=== PATIENT | male | born 1995 | race American Indian/Alaskan Native ===

== ENCOUNTER 2016-11-07 21:10 | Emergency (ER) | payer OTHER ==
--- NOTE | 2016-11-08 02:47 | Emergency Department Report ---
ED ENT HPI - General Chief complaint: Sore Throat Stated complaint: SORE THROAT Time Seen by Provider: 11/08/16 02:06 Source: patient Mode of arrival: Ambulatory Limitations: No Limitations - History of Present Illness Initial comments: This is a 21-year-old male nontoxic, well nourished in appearance, no acute signs of distress presents to the ED complaining of sore throat 5 days. Patient describes sore throat and swallowing razor blade. She denies any fever , chills, nausea, vomiting, drooling, difficulty breathing, stiff neck, headache , numbness or tingling. Patient denies any trauma to the region. Denies any allergies. past medical history includes asthma and diabetes.. MD complaint: sore throat -: Gradual, days(s) (5) Location: throat Severity: moderate Severity scale (0 -10): 8 Quality: other (sensation of swallowing razor blades) Consistency: constant Improves with: none Worsens with: swallowing Associated Symptoms: pain with swallowing, sore throat. denies: fever, cough, gum swelling, toothache, tinnitus, hearing loss, discharge from ear, rhinorrhea - Related Data Previous Rx's Medication Instructions Recorded Last Taken Type ALBUTEROL Inhaler [ProAir HFA 2 puff IH QID PRN #1 inhalation 08/10/14 Unknown Rx Inhaler] Fluticasone [Flonase] 2 spray NS QDAY #1 bottle 08/10/14 Unknown Rx Loratadine [Claritin] 10 mg PO DAILY #30 tablet 08/10/14 Unknown Rx predniSONE [Deltasone] 20 mg PO QDAY #5 tab 08/10/14 Unknown Rx Amoxicillin 500 mg PO BID #20 capsule 11/08/16 Unknown Rx Nystas/Diphen/Xyl Visc/Mylanta 480 ml MM DAILY #1 udc 11/08/16 Unknown Rx [Magic Mouthwash] Allergies Allergy/AdvReac Type Severity Reaction Status Date / Time No Known Allergies Allergy Unverified 08/09/14 22:10 ED Dental HPI - General Chief complaint: Sore Throat Stated complaint: SORE THROAT Time Seen by Provider: 11/08/16 02:06 Source: patient Mode of arrival: Ambulatory Limitations: No Limitations - Related Data Previous Rx's Medication Instructions Recorded Last Taken Type ALBUTEROL Inhaler [ProAir HFA 2 puff IH QID PRN #1 inhalation 08/10/14 Unknown Rx Inhaler] Fluticasone [Flonase] 2 spray NS QDAY #1 bottle 08/10/14 Unknown Rx Loratadine [Claritin] 10 mg PO DAILY #30 tablet 08/10/14 Unknown Rx predniSONE [Deltasone] 20 mg PO QDAY #5 tab 08/10/14 Unknown Rx Amoxicillin 500 mg PO BID #20 capsule 11/08/16 Unknown Rx Nystas/Diphen/Xyl Visc/Mylanta 480 ml MM DAILY #1 udc 11/08/16 Unknown Rx [Magic Mouthwash] Allergies Allergy/AdvReac Type Severity Reaction Status Date / Time No Known Allergies Allergy Unverified 08/09/14 22:10 ED Review of Systems ROS: Stated complaint: SORE THROAT Other details as noted in HPI Constitutional: denies: chills, fever Eyes: denies: eye pain, eye discharge, vision change ENT: throat pain. denies: ear pain Respiratory: denies: cough, shortness of breath, wheezing Cardiovascular: denies: chest pain, palpitations Endocrine: no symptoms reported Gastrointestinal: denies: abdominal pain, nausea, diarrhea Genitourinary: denies: urgency, dysuria Musculoskeletal: denies: back pain, joint swelling, arthralgia Skin: denies: rash, lesions Neurological: denies: headache, weakness, paresthesias Psychiatric: denies: anxiety, depression Hematological/Lymphatic: denies: easy bleeding, easy bruising ED Past Medical Hx - Past Medical History Hx Diabetes: Yes Hx Asthma: Yes - Surgical History Past Surgical History?: No - Social History Smoking Status: Never Smoker Substance Use Type: None - Medications Home Medications: Home Medications Medication Instructions Recorded Confirmed Last Taken Type ALBUTEROL Inhaler [ProAir HFA 2 puff IH QID PRN #1 inhalation 08/10/14 Unknown Rx Inhaler] Fluticasone [Flonase] 2 spray NS QDAY #1 bottle 08/10/14 Unknown Rx Loratadine [Claritin] 10 mg PO DAILY #30 tablet 08/10/14 Unknown Rx predniSONE [Deltasone] 20 mg PO QDAY #5 tab 08/10/14 Unknown Rx Amoxicillin 500 mg PO BID #20 capsule 11/08/16 Unknown Rx Nystas/Diphen/Xyl Visc/Mylanta 480 ml MM DAILY #1 udc 11/08/16 Unknown Rx [Magic Mouthwash] ED Physical Exam - General Limitations: No Limitations General appearance: alert, in no apparent distress - Head Head exam: Present: atraumatic, normocephalic, normal inspection - Eye Eye exam: Present: normal appearance, PERRL, EOMI. Absent: scleral icterus, conjunctival injection, nystagmus, periorbital swelling, periorbital tenderness Pupils: Present: normal accommodation - ENT ENT exam: Present: mucous membranes moist, TM's normal bilaterally, normal external ear exam - Expanded ENT Exam Expanded Ear exam: Present: normal external inspection Mouth exam: Present: normal external inspection, tongue normal. Absent: drooling, trismus, muffled voice, tongue elevation, laceration Teeth exam: Present: normal inspection Throat exam: Positive: tonsillar erythema, tonsillomegaly (2+), tonsillar exudate, other (no abscesses or swelling noted. Uvula midline.). Negative: R peritonsillar mass, L peritonsillar mass - Neck Neck exam: Present: normal inspection, full ROM. Absent: tenderness, meningismus, lymphadenopathy, thyromegaly - Respiratory Respiratory exam: Present: normal lung sounds bilaterally. Absent: respiratory distress, wheezes, rales, rhonchi, stridor, chest wall tenderness, accessory muscle use, decreased breath sounds, prolonged expiratory - Cardiovascular Cardiovascular Exam: Present: regular rate, normal rhythm, normal heart sounds. Absent: systolic murmur, diastolic murmur, rubs, gallop - GI/Abdominal GI/Abdominal exam: Present: soft, normal bowel sounds - Rectal Rectal exam: Present: deferred - Extremities Exam Extremities exam: Present: normal inspection, full ROM, normal capillary refill. Absent: tenderness, pedal edema, joint swelling, calf tenderness - Back Exam Back exam: Present: normal inspection, full ROM. Absent: tenderness, CVA tenderness (R), CVA tenderness (L), muscle spasm, paraspinal tenderness, vertebral tenderness, rash noted - Neurological Exam Neurological exam: Present: alert, oriented X3, CN II-XII intact, normal gait, reflexes normal - Psychiatric Psychiatric exam: Present: normal affect, normal mood - Skin Skin exam: Present: warm, dry, intact, normal color. Absent: rash ED Course Vital Signs 11/07/16 11/07/16 21:25 21:30 Temperature 99.8 F H 99.8 F H Pulse Rate 105 H 102 H Respiratory 18 18 Rate Blood Pressure 122/76 Blood Pressure 122/76 [Left] O2 Sat by Pulse 98 97 Oximetry - Reevaluation(s) Reevaluation #1: 11/08/16 02:45 Patient is speaking full sentences with no signs of distress Critical care attestation.: If time is entered above; I have spent that time in minutes in the direct care of this critically ill patient, excluding procedure time. ED Disposition Clinical Impression: Tonsillitis with exudate Disposition: DC-01 TO HOME OR SELFCARE Is pt being admited?: No Does the pt Need Aspirin: No Condition: Stable Instructions: Tonsillitis (ED), Amoxicillin (By mouth) Additional Instructions: Follow-up with a primary care doctor in 3-5 days or if symptoms worsen and continue return to emergency room as soon as possible possible. Prescriptions: Amoxicillin 500 mg PO BID #20 capsule Nystas/Diphen/Xyl Visc/Mylanta [Magic Mouthwash] 480 ml MM DAILY #1 [facility] [place] Referrals: PRIMARY CAREMD [Primary Care Provider] - 3-5 Days MINDA ORELLANA MD [Staff Physician] - 3-5 Days [facility] [Outside] - 3-5 Days [facility] [Outside] - 3-5 Days Forms: Work/School Release Form(ED)
[2016-11-08] MEDS ORDERED: LIDOCAINE VISCOUS 2% PO ONE (02:50)
[2016-11-08 03:18] VITALS: BP 122/71
[2016-11-08] MEDS ORDERED: MOTRIN PO ONE (03:45)
== END 2016-11-08 03:56 | disposition home or self-care (01) ==
LOC: ED 21:10
DX: J03.90 Acute tonsillitis, unspecified (principal); E11.9 Type 2 diabetes mellitus without complications; J45.909 Unspecified asthma, uncomplicated
CPT/HCPCS: 87116; 87430; 99282

== ENCOUNTER 2017-02-15 14:55 | Emergency (ER) | payer OTHER ==
[2017-02-15 16:27] LABS: Basophils # (Auto) 0.1 K/mm3 (0.0-0.1); Basophils % (Auto) 0.7 % (0.0-1.8); Eosinophils # (Auto) 0.3 K/mm3 (0.0-0.4); Eosinophils % (Auto) 4.2 % (0.0-4.3); Hematocrit 43.9 % (35.5-45.6); Hemoglobin 14.1 gm/dl (11.8-15.2); Lymphocytes % (Auto) 28.6 % (13.4-35.0); Mean Corpuscular HGB Conc 32 % (32-34); Mean Corpuscular Hemoglobin 28 pg (28-32); Mean Corpuscular Volume 87 fl (84-94); Monocytes # (Auto) 0.8 K/mm3 (0.0-0.8); Monocytes % (Auto) 12.2 % (0.0-7.3); Platelet Count 350 K/mm3 (140-440); Red Blood Count 5.06 M/mm3 (3.65-5.03); Red Cell Distribution Width 14.5 % (13.2-15.2)
[2017-02-15 16:32] LABS: Bilirubin,Urine SM (Negative); Blood,Urine NEG (Negative); Color,Urine Amber (Yellow); Mucus,Urine 3+ /HPF; Nitrite,Urine NEG (Negative)
[2017-02-15 16:39] LABS: Ictotest,Urine Negative (Negative)
[2017-02-15 16:51] LABS: Alanine Aminotransferase 26 units/L (7-56); Albumin 4.1 g/dL (3.9-5); BUN/Creatinine Ratio 7; Blood Urea Nitrogen 5 mg/dL (9-20); Calcium 9.3 mg/dL (8.4-10.2); Hemolysis Index 8
[2017-02-15 21:55] VITALS: BP 110/77
--- NOTE | 2017-02-16 00:15 | Emergency Department Report ---
ED N/V/D HPI - General Chief complaint: Abdominal Pain Stated complaint: ABD PAIN, VOMITTING, DIAHRRHEA Time Seen by Provider: 02/15/17 23:31 Source: patient Mode of arrival: Ambulatory Limitations: No Limitations - History of Present Illness Initial comments: 21 year old male with a past medical history asthma and [id number] diabetes presents to the hospital complaints of intermittent abdominal pain, nausea, vomiting, and diarrhea since end of January. Symptoms worsened prior to presentation to the ED. Patient states his abdomen "seized up" he thought he could not move. At that time pain was severe. Patient has been in the ER over 8 hours the pain has gradually subsided spontaneously without treatment. He is currently pain-free. Patient states for the past month he's been vomiting on average every day and having approximately 4 loose stools per day. Patient denies hematemesis, melena, hematochezia, fever, recent travel, sick contacts, or recent antibiotic use. Patient has both a primary care doctor and a environmental resource specialist and plans to follow-up next week. He does not have a GI specialist. - Related Data Previous Rx's Medication Instructions Recorded Last Taken Type ALBUTEROL Inhaler [ProAir HFA 2 puff IH QID PRN #1 inhalation 08/10/14 Unknown Rx Inhaler] Fluticasone [Flonase] 2 spray NS QDAY #1 bottle 08/10/14 Unknown Rx Loratadine [Claritin] 10 mg PO DAILY #30 tablet 08/10/14 Unknown Rx predniSONE [Deltasone] 20 mg PO QDAY #5 tab 08/10/14 Unknown Rx Amoxicillin 500 mg PO BID #20 capsule 11/08/16 Unknown Rx Nystas/Diphen/Xyl Visc/Mylanta 480 ml MM DAILY #1 udc 11/08/16 Unknown Rx [Magic Mouthwash] Loperamide [Imodium] 2 mg PO Q2HR PRN #20 capsule 02/16/17 Unknown Rx Ondansetron [Zofran Odt] 4 mg PO Q8HR PRN #20 tab.rapdis 02/16/17 Unknown Rx traMADol [Ultram] 50 mg PO Q6HR PRN #20 tablet 02/16/17 Unknown Rx Allergies Allergy/AdvReac Type Severity Reaction Status Date / Time No Known Allergies Allergy Unverified 07/04/15 22:10 ED Review of Systems ROS: Stated complaint: ABD PAIN, VOMITTING, DIAHRRHEA Other details as noted in HPI Comment: All other systems reviewed and negative Other: Constitutional: No fevers chills Eyes: No eye pain visual changes ENT: No ear pain or throat pain Neck: Denies pain Respiratory: Denies cough wheezing shortness of breath Cardiovascular: Denies chest pain, palpitations, syncope GI:as per hpi : Denies dysuria Musculoskeletal: Denies back pain Skin: Denies rash, lesions, erythema Neurologic: Denies headache, numbness, weakness Psychiatric: Denies suicidal ideation, hallucinations ED Past Medical Hx - Past Medical History Hx Diabetes: Yes Hx Asthma: Yes - Social History Smoking Status: Never Smoker Substance Use Type: None - Medications Home Medications: Home Medications Medication Instructions Recorded Confirmed Last Taken Type ALBUTEROL Inhaler [ProAir HFA 2 puff IH QID PRN #1 inhalation 08/10/14 Unknown Rx Inhaler] Fluticasone [Flonase] 2 spray NS QDAY #1 bottle 08/10/14 Unknown Rx Loratadine [Claritin] 10 mg PO DAILY #30 tablet 08/10/14 Unknown Rx predniSONE [Deltasone] 20 mg PO QDAY #5 tab 08/10/14 Unknown Rx Amoxicillin 500 mg PO BID #20 capsule 11/08/16 Unknown Rx Nystas/Diphen/Xyl Visc/Mylanta 480 ml MM DAILY #1 udc 11/08/16 Unknown Rx [Magic Mouthwash] Loperamide [Imodium] 2 mg PO Q2HR PRN #20 capsule 02/16/17 Unknown Rx Ondansetron [Zofran Odt] 4 mg PO Q8HR PRN #20 tab.rapdis 02/16/17 Unknown Rx traMADol [Ultram] 50 mg PO Q6HR PRN #20 tablet 02/16/17 Unknown Rx ED Physical Exam - General Limitations: No Limitations - Other Other exam information: General: No limitations, patient is alert in no acute distress Head exam: Atraumatic, normocephalic Eyes exam: Normal appearance, pupils equal reactive to light, extraocular movements intact ENT: Moist mucous membrane, normal oropharynx Neck exam: Normal inspection, full range of motion, no meningismus nontender Respiratory exam: Clear to auscultation bilateral, no wheezes, rales, crackles Cardiovascular: Normal rate and rhythm, normal heart sounds Abdomen: Soft, nondistended, and nontender, with normal bowel sounds, no rebound, or guarding Extremity: Full range of motion normal inspection no deformity Back: Normal Inspection, full range of motion, no tenderness Neurologic: Alert, oriented x3, cranial nerves intact, no motor or sensory deficit Psychiatric: normal affect, normal mood Skin: Warm, dry, intact ED Course Vital Signs 02/15/17 02/15/17 02/15/17 15:29 21:55 23:41 Temperature 98.9 F 98.3 F Pulse Rate 88 84 Respiratory 14 18 16 Rate Blood Pressure 122/67 Blood Pressure 110/77 [Right] O2 Sat by Pulse 97 97 97 Oximetry ED Medical Decision Making - Lab Data Result diagrams: 02/15/17 16:00 02/15/17 16:00 Lab Results 02/15/17 02/15/17 02/15/17 Range/Units 16:00 16:00 16:16 WBC 6.8 (4.5-11.0) K/mm3 RBC 5.06 H (3.65-5.03) M/mm3 Hgb 14.1 (11.8-15.2) gm/dl Hct 43.9 (35.5-45.6) % MCV 87 (84-94) fl MCH 28 (28-32) pg MCHC 32 (32-34) % RDW 14.5 (13.2-15.2) % Plt Count 350 (140-440) K/mm3 Lymph % (Auto) 28.6 (13.4-35.0) % [place] % (Auto) 12.2 H (0.0-7.3) % Eos % (Auto) 4.2 (0.0-4.3) % Baso % (Auto) 0.7 (0.0-1.8) % Lymph # 2.0 (1.2-5.4) K/mm3 [place] # 0.8 (0.0-0.8) K/mm3 Eos # 0.3 (0.0-0.4) K/mm3 Baso # 0.1 (0.0-0.1) K/mm3 Seg Neutrophils % 54.3 (40.0-70.0) % Seg Neutrophils # 3.7 (1.8-7.7) K/mm3 Sodium 140 (137-145) mmol/L Potassium 3.8 (3.6-5.0) mmol/L Chloride 101.0 (98-107) mmol/L Carbon Dioxide 27 (22-30) mmol/L Anion Gap 16 mmol/L BUN 5 L (9-20) mg/dL Creatinine 0.7 L (0.8-1.5) mg/dL Estimated GFR > 60 ml/min BUN/Creatinine Ratio 7 % Glucose 84 (75-100) mg/dL Calcium 9.3 (8.4-10.2) mg/dL Total Bilirubin 0.40 (0.1-1.2) mg/dL AST 20 (5-40) units/L ALT 26 (7-56) units/L Alkaline Phosphatase 58 (35-129) units/L Total Protein 7.8 (6.3-8.2) g/dL Albumin 4.1 (3.9-5) g/dL Albumin/Globulin Ratio 1.1 % Urine Color [place] (Yellow) Urine Turbidity Clear (Clear) Urine pH 5.0 (5.0-7.0) Ur Specific [place] 1.033 H (1.003-1.030) Urine Protein 30 mg/dl (Negative) mg/dL Urine Glucose (UA) Neg (Negative) mg/dL Urine Ketones Tr (Negative) mg/dL Urine Blood Neg (Negative) Urine Nitrite Neg (Negative) Urine Bilirubin Sm (Negative) Urine Ictotest Negative (Negative) Urine Urobilinogen 2.0 (<2.0) mg/dL Ur Leukocyte Esterase Neg (Negative) Urine WBC (Auto) 8.0 H (0.0-6.0) /HPF Urine RBC (Auto) 1.0 (0.0-6.0) /HPF U Epithel Cells (Auto) < 1.0 (0-13.0) /HPF Urine Mucus 3+ /HPF - Medical Decision Making Abdominal pain/nausea/diarrhea/vomiting Pain-free without ED intervention Labs unremarkable UA has mild increased wbc count patient is asymptomatic Denies bloody or mucous stool I Do not believe CT imaging is indicated at this time given normal labs and benign abdominal exam I do believe that outpatient follow-up is important for further treatment and intravenous Patient be treated symptomatically - Differential Diagnosis gastroparesis, gastroenteritis, infectious diarrhea, appendicitis, divertic Critical Care Time: No Critical care attestation.: If time is entered above; I have spent that time in minutes in the direct care of this critically ill patient, excluding procedure time. ED Disposition Clinical Impression: Gastroenteritis, Diabetes Disposition: DC- TO HOME OR SELFCARE Is pt being admited?: No Does the pt Need Aspirin: No Condition: Stable Instructions: Gastroenteritis (ED) Additional Instructions: Follow up with your primary care doctor for further evaluation. Take the medication as prescribed. Follow up with the GI doctor provided. Return if symptoms as indicated by your discharge instructions Prescriptions: Loperamide [Imodium] 2 mg PO Q2HR PRN #20 capsule PRN Reason: Diarrhea Ondansetron [Zofran Odt] 4 mg PO Q8HR PRN #20 tab.rapdis PRN Reason: Nausea And Vomiting traMADol [Ultram] 50 mg PO Q6HR PRN #20 tablet PRN Reason: Pain Referrals: PRIMARY CARE, [Primary Care Provider] - 2-3 Days LUCIA JACOB MD [Staff Physician] - 3-5 Days (GI specialist) Forms: Work/School Release Form(ED) Time of Disposition: 00:16
== END 2017-02-16 00:40 | disposition home or self-care (01) ==
LOC: ED 14:55
DX: K52.9 Noninfective gastroenteritis and colitis, unspecified (principal); E11.9 Type 2 diabetes mellitus without complications; J45.909 Unspecified asthma, uncomplicated
CPT/HCPCS: 36415; 80053; 81001; 85025; 99283

== ENCOUNTER 2017-03-16 09:14 | Emergency (ER) | payer OTHER ==
[2017-03-16 10:02] VITALS: BP 124/63
--- NOTE | 2017-03-16 12:43 | Emergency Department Report ---
Blank Doc - Documentation Documentation: Patient is a 21-year-old [place] male who is presenting with a crampy abdominal pain diarrhea patient also has noted some blood in his stool. Patient denies any fever nausea vomiting. Patient states he had episode of several days of diarrhea and abdominal cramping several months ago as well but tonight it checked out. Patient's abdomen is soft nontender on exam however with the history of pain and blood in the stool CT will be ordered and basic blood work
[2017-03-16 13:02] LABS: Basophils % (Auto) 0.6 % (0.0-1.8); Eosinophils % (Auto) 0.8 % (0.0-4.3); Hematocrit 42.4 % (35.5-45.6); Hemoglobin 13.9 gm/dl (11.8-15.2); Lymphocytes # (Auto) 1.7 K/mm3 (1.2-5.4); Lymphocytes % (Auto) 29.9 % (13.4-35.0); Mean Corpuscular HGB Conc 33 % (32-34); Mean Corpuscular Hemoglobin 28 pg (28-32); Mean Corpuscular Volume 86 fl (84-94); Monocytes # (Auto) 0.8 K/mm3 (0.0-0.8); Monocytes % (Auto) 13.3 % (0.0-7.3); Platelet Count 339 K/mm3 (140-440); Red Blood Count 4.93 M/mm3 (3.65-5.03); Red Cell Distribution Width 14.6 % (13.2-15.2)
[2017-03-16 13:16] LABS: BUN/Creatinine Ratio 7; Blood Urea Nitrogen 5 mg/dL (9-20); Hemolysis Index 17
--- NOTE | 2017-03-16 14:42 | Cat Scan Report ---
FINAL REPORT PROCEDURE: CT ABDOMEN PELVIS WO CON TECHNIQUE: Computerized axial tomography of the abdomen and pelvis was performed without intravenous contrast. This study is performed without intravascular contrast material and its sensitivity for abdominal and pelvic pathology, including neoplasms, inflammation, abscess, free fluid, thrombosis, arterial dissection and infarction, is reduced compared with a contrast enhanced study. HISTORY: bloody stool COMPARISON: No prior studies are available for comparison. FINDINGS: Lower Lung meadows: No focal abnormality seen. Upper Abdomen: The liver, the gallbladder, the adrenal glands, the pancreas and the spleen are unremarkable. Kidneys, Ureters and Urinary bladder: No abnormalities are seen. Urinary bladder is only partially filled and shows no gross abnormality. Retroperitoneum: Abdominal aorta appears normal There are multiple prominent lymph nodes in the retroperitoneum, periaortic pericaval region and extending into the right and left pelvis also in the presacral region measuring up to 15.5 x 10.3 millimeters. Several mildly prominent lymph nodes project into the root of the mesentery as well measuring up to 18 millimeters x 11 millimeters. Bowel: There is narrowing of the lumen of the proximal sigmoid colon seen on axial image 154 series 2 which is a finding of uncertain significance. This may be an artifact from peristalsis. The adjacent mesentery is unremarkable. Bowel loops otherwise are unremarkable. Reproductive organs: Prostate gland does not appear to be enlarged. Other: No acute bony abnormalities are identified. IMPRESSION: Mild pelvic and retroperitoneal adenopathy as well as adenopathy extending into the root of the mesentery. Etiology is uncertain. This could represent an inflammatory response. I cannot exclude lymphoma or metastatic disease Luminal narrowing seen in the distal sigmoid colon as described. This may be an artifact peristalsis. I cannot exclude a nonspecific colitis. If clinically indicated nuclear medicine bleeding scan could be performed to evaluate for the site of intestinal bleeding..
--- NOTE | 2017-03-16 15:58 | Emergency Department Report ---
ED Abdominal Pain HPI - General Chief Complaint: Abdominal Pain Stated Complaint: DIARRHEA Time Seen by Provider: 03/16/17 12:21 Source: patient Mode of arrival: Ambulatory Limitations: No Limitations - History of Present Illness Initial Comments: This is a 21 y.o. male presents with diarrhea and abdominal pain for 4 days. Patient states stool was hard and very difficult to pass on Monday. He noticed red blood in stool Monday when bowel passed. His head has been hurting since abdominal pain began. Pain is 8/10 and intermittent. It is better after bowel movement. He had the same symptoms a few months ago and came to ER and treated with supportive care. Advised to f/u with PCP which he did and they told him to f/u with gastroenterology if symptoms return. Currently he is not in pain. Denies nausea, vomiting, hematochozia, and fever. MD Complaint: abdominal pain -: days(s) (4) Location: LLQ, RLQ Radiation: none Migration to: no migration Severity: moderate Severity scale (0 -10): 0 Quality: cramping, sharp Consistency: intermittent Improves With: bowel movement Worsens With: other (symptoms of bowel movement) Associated Symptoms: constipation - Related Data Previous Rx's Medication Instructions Recorded Last Taken Type ALBUTEROL Inhaler [ProAir HFA 2 puff IH QID PRN #1 inhalation 08/10/14 Unknown Rx Inhaler] Fluticasone [Flonase] 2 spray NS QDAY #1 bottle 08/10/14 Unknown Rx Loratadine [Claritin] 10 mg PO DAILY #30 tablet 08/10/14 Unknown Rx predniSONE [Deltasone] 20 mg PO QDAY #5 tab 08/10/14 Unknown Rx Amoxicillin 500 mg PO BID #20 capsule 11/08/16 Unknown Rx Nystas/Diphen/Xyl Visc/Mylanta 480 ml MM DAILY #1 udc 11/08/16 Unknown Rx [Magic Mouthwash] Loperamide [Imodium] 2 mg PO Q2HR PRN #20 capsule 02/16/17 Unknown Rx Ondansetron [Zofran Odt] 4 mg PO Q8HR PRN #20 tab.rapdis 02/16/17 Unknown Rx traMADol [Ultram] 50 mg PO Q6HR PRN #20 tablet 02/16/17 Unknown Rx Clindamycin [Clindamycin CAP] 300 mg PO Q8H 7 Days #21 cap 03/16/17 Unknown Rx Allergies Allergy/AdvReac Type Severity Reaction Status Date / Time No Known Allergies Allergy Unverified 08/09/14 22:10 ED Review of Systems ROS: Stated complaint: DIARRHEA Other details as noted in HPI Constitutional: denies: chills, fever Respiratory: denies: cough, shortness of breath, wheezing Cardiovascular: denies: chest pain, palpitations Gastrointestinal: abdominal pain (RLQ & LLQ), constipation Skin: denies: rash, lesions Neurological: headache. denies: weakness, numbness, paresthesias, confusion, abnormal gait ED Past Medical Hx - Past Medical History Previous Medical History?: Yes Hx Diabetes: Yes Hx Asthma: Yes - Surgical History Past Surgical History?: No - Social History Smoking Status: Never Smoker Substance Use Type: Marijuana - Medications Home Medications: Home Medications Medication Instructions Recorded Confirmed Last Taken Type ALBUTEROL Inhaler [ProAir HFA 2 puff IH QID PRN #1 inhalation 08/10/14 Unknown Rx Inhaler] Fluticasone [Flonase] 2 spray NS QDAY #1 bottle 08/10/14 Unknown Rx Loratadine [Claritin] 10 mg PO DAILY #30 tablet 08/10/14 Unknown Rx predniSONE [Deltasone] 20 mg PO QDAY #5 tab 08/10/14 Unknown Rx Amoxicillin 500 mg PO BID #20 capsule 11/08/16 Unknown Rx Nystas/Diphen/Xyl Visc/Mylanta 480 ml MM DAILY #1 udc 11/08/16 Unknown Rx [Magic Mouthwash] Loperamide [Imodium] 2 mg PO Q2HR PRN #20 capsule 02/16/17 Unknown Rx Ondansetron [Zofran Odt] 4 mg PO Q8HR PRN #20 tab.rapdis 02/16/17 Unknown Rx traMADol [Ultram] 50 mg PO Q6HR PRN #20 tablet 02/16/17 Unknown Rx Clindamycin [Clindamycin CAP] 300 mg PO Q8H 7 Days #21 cap 03/16/17 Unknown Rx ED Physical Exam - General Limitations: No Limitations General appearance: alert, in no apparent distress - Respiratory Respiratory exam: Present: normal lung sounds bilaterally. Absent: respiratory distress - Cardiovascular Cardiovascular Exam: Present: regular rate, normal rhythm. Absent: systolic murmur, diastolic murmur, rubs, gallop - GI/Abdominal GI/Abdominal exam: Present: soft, normal bowel sounds. Absent: distended, tenderness, hyperactive bowel sounds, hypoactive bowel sounds, organomegaly, pulsatile mass - Back Exam Back exam: Present: normal inspection - Neurological Exam Neurological exam: Present: alert, oriented X3, normal gait ED Course Vital Signs 03/16/17 09:55 Temperature 98 F Pulse Rate 73 Respiratory 18 Rate Blood Pressure 124/63 O2 Sat by Pulse 98 Oximetry ED Medical Decision Making - Lab Data Result diagrams: 03/16/17 12:47 03/16/17 12:47 - Radiology Data Radiology results: image reviewed CT of abdomen and pelvic Mild pelvic and retroperitoneal adenopathy as well as adenopathy extending into the root of the mesentery. Etiology is uncertain. This could represent an inflammatory response. I cannot exclude lymphoma or metastatic disease Luminal narrowing seen in the distal sigmoid colon as described. This may be an artifact peristalsis. I cannot exclude a nonspecific colitis. If clinically indicated nuclear medicine bleeding scan could be performed to evaluate for the site of intestinal bleeding.. - Medical Decision Making 21 y.o. male that presents with abdominal pain and diarrhea. Currently not in pain. Pain is better after bowel movement. Patient examined by me and stable. No distress noted. Obtained CT of abdomen and pelvis, read by radiologist. CBC, BMP normal. Vitals stable. Normal assessment. Discharged home f/u with gastroenterology. Abnormal CT findings, Start clindamycin. Critical care attestation.: If time is entered above; I have spent that time in minutes in the direct care of this critically ill patient, excluding procedure time. ED Disposition Clinical Impression: Inflammatory bowel disease Diarrhea Qualifiers: Diarrhea type: unspecified type Qualified Code(s): R19.7 - Diarrhea, unspecified Disposition: DC-01 TO HOME OR SELFCARE Is pt being admited?: No Does the pt Need Aspirin: No Condition: Stable Instructions: Acute Diarrhea (ED), Abdominal Pain (ED) Additional Instructions: Follow up with gastroenterology for further evaluation. Prescriptions: Clindamycin [Clindamycin CAP] 300 mg PO Q8H 7 Days #21 cap Referrals: torrey Wilson [Other] - 3-5 Days [facility] [Outside] - 3-5 Days Forms: Work/School Release Form(ED) Time of Disposition: 16:27 Print Language: INDONESIAN
== END 2017-03-16 16:43 | disposition home or self-care (01) ==
LOC: ED 09:14
DX: K63.89 Other specified diseases of intestine (principal); R19.7 Diarrhea, unspecified; E11.9 Type 2 diabetes mellitus without complications; J45.909 Unspecified asthma, uncomplicated; F12.10 Cannabis abuse, uncomplicated
CPT/HCPCS: 36415; 74176; 80048; 85025